=== PATIENT | male | born 1980 | race Hispanic/Latino ===

== ENCOUNTER 2023-10-16 15:38 | Emergency (ER) | payer OTHER, SELFPAY ==
[2023-10-16] MEDS ORDERED: Lidocaine 1% w/Epinephrine 1:100K 20 ML VIAL ONE (15:54)
== END 2023-10-16 16:55 | disposition home or self-care (01) ==
LOC: NAV ERS 15:38
DX: S01.81XA Laceration without foreign body of other part of head, initial encounter (principal); S63.509A Unspecified sprain of unspecified wrist, initial encounter; S20.212A Contusion of left front wall of thorax, initial encounter; W20.8XXA Other cause of strike by thrown, projected or falling object, initial encounter
CPT/HCPCS: 12013